=== PATIENT | female | born 2005 | race Two or more races ===

== ENCOUNTER 2024-09-05 02:20 | Emergency (ER) | payer MEDICAID ==
[~2024-09-05] VITALS: Ht 162.6 cm; Wt 56.8 kg
[2024-09-05 02:27] VITALS: BP 124/77; PULSE 106; RESP 20; TEMP 98.8; O2SAT 97
== END 2024-09-05 02:46 ==
LOC: EEVIPCON 02:21 → ER 02:21
DX: S00.33XA Contusion of nose, initial encounter (principal); R04.0 Epistaxis; W01.0XXA Fall on same level from slipping, tripping and stumbling without subsequent striking against object, initial encounter; Y93.02 Activity, running; Y92.89 Other specified places as the place of occurrence of the external cause; Y99.8 Other external cause status
CPT/HCPCS: 99283